=== PATIENT | female | born 1960 | race Caucasian/White ===

== ENCOUNTER → 2016-08-18 | Outpatient (CLI) | payer BC ==
[2016-08-18 14:27] VITALS: BP 168/98; PULSE 84; RESP 16; TEMP 98.3; BMI 51.0
--- NOTE | 2016-08-18 15:49 | P.HPBAR ---
Bariatric H&P - History & Physicial H&P Date: 08/18/16 History & Physicial: Visit/CC: Band Problems Patient initial contact: Initial weight: Initial weight in pounds: Height: 5 ft 6 in Initial BMI: Last weight: Current weight: 143.335 kg Current weight in pounds: 316.00 Current BMI: 51.0 [place] body weight (based on NIH guidelines): 58.967 kg Excess body weight loss: The patient is a 56 year-old F who presents for Bariatric Assessment. The patient presents today for lab band follow up. She's not been seen several years. Patient has complaints of left-sided abdominal pain. She has also had issues with GERD. Past Medical History Past Medical History: Cancer, Osteoarthritis (OA) Additional Past Medical History / Comment(s): Hard of hearing, degenerative disc disease and stenosis, left kidney cancer History of Any Multi-Drug Resistant Organisms: None Reported Past Surgical History: Bariatric Surgery, Section, Orthopedic Surgery Additional Past Surgical History / Comment(s): lap band 2003 (port moved from left to right later on), left knee total, right hip total replacement, left partial nephrectomy (cancer), D&C, ovarian cyst removal, right rotator cuff x2, (adhesion removal following the ) , Right carpal tunnel, left breast lumpectomy (benign) Past Anesthesia/Blood Transfusion Reactions: Postoperative Nausea & Vomiting ( PONV) Additional Past Anesthesia/Blood Transfusion Reaction / Comm: if not given an antiemetic will get Vertigo after anesthesia Past Psychological History: Depression Smoking Status: Former smoker Past Alcohol Use History: None Reported Additional Past Alcohol Use History / Comment(s): quit in 1982 Past Drug Use History: None Reported - Past Family History Mother Family Medical History: Congestive Heart Failure (CHF), Hypertension Father Family Medical History: Diabetes Mellitus Additional Family Medical History / Comment(s): at age 84, Surgical - Exam Vital Signs Temp Pulse Resp BP 98.3 F 84 16 168/98 08/18/16 14:22 08/18/16 14:22 08/18/16 14:22 08/18/16 14:22 - General well developed, no distress - Eyes PERRL - ENT normal pinna - Abdomen Mild left lower quadrant tenderness Abdomen: soft Bariatric Assessment & Plan Plan: Morbid obesity BMI 51. Left-sided abdominal pain. Patient will undergo computed tomography scan of the abdomen. GERD. Patient will undergo esophagram. Bariatric Checklist Checklist: Plan: Checklist: EGD: 1. Hiatal hernia: 2. H. Pylori: HgbA1c: Vitamin D: Smoking: Former smoker Primary care physician referral: Psychiatry clearance: Cardiology clearance: Sleep study: Diet journal: VTE risk score: VTE risk level: Rehab needs at discharge:
== END | disposition home or self-care (01) ==
LOC: BARWHC3 13:53
PROVIDERS: ATTEND Surgery
DX: Z48.815 Encounter for surgical aftercare following surgery on the digestive system (principal); Z98.84 Bariatric surgery status; R10.84 Generalized abdominal pain; K21.9 Gastro-esophageal reflux disease without esophagitis; Z68.43 Body mass index [BMI] 50.0-59.9, adult; Z87.891 Personal history of nicotine dependence
CPT/HCPCS: 99211

== ENCOUNTER → 2016-08-20 | Outpatient (CLI) | payer BC ==
--- NOTE | 2016-08-20 11:42 | FL ---
EXAMINATION TYPE: FL barium swallow DATE OF EXAM: 08/20/2016 11:36 AM LAP BANDING LIMITED ESOPHAGRAM: CLINICAL HISTORY: History of lap band placed 2003 presents with dysphagia per order. Right upper nicolasa drant pain for 8 months per patient. No recent change in lap band fill. TECHNIQUE: Limited esophagram is performed utilizing 2-3 oz of thin barium. A total of 18 seconds of fluoroscopic time was utilized during procedure. COMPARISON: Chest x-ray October 11, 2009. FINDINGS: Pre-procedure washing machine loader and puller image shows lap band in stable and satisfactory position in proximal stomach just below the gastroesophageal junction. Angle is maintained. The patient then drank oral contrast. There is good flow of contrast along the course of the esophagu s. There is good flow of contrast along the course of the lap band, there is no evidence of contrast extravasation to suggest leak. There is no lap band slippage appreciated. IMPRESSION: No evidence of lap band slippage or significant obstruction.
== END | disposition home or self-care (01) ==
LOC: RADFLWHC 10:49
PROVIDERS: ATTEND Surgery
DX: R13.10 Dysphagia, unspecified (principal)
CPT/HCPCS: 74220

== ENCOUNTER → 2016-08-27 | Outpatient (CLI) | payer BC ==
[2016-08-27 13:49] LABS: Blood Urea Nitrogen 16 mg/dL (7-17); Non-African American GFR(MDRD) >60 (>60 ml/min/1.73 sqM)
--- NOTE | 2016-08-27 15:18 | CT ---
EXAMINATION TYPE: CT abdomen pelvis w con DATE OF EXAM: 08/27/2016 2:42 PM REFERENCE: NONE HISTORY: R10.84 LLQ Abd Pain HISTORY: Left Lower Quadrant pain REFERENCE: NONE CT DLP: 3349.6 mGy Automated exposure control for dose reduction was used. TECHNIQUE: Helical acquisition through the abdomen and pelvis was obtained following the oral ingesti on of with Oral Contrast and following intravenous administration of 100 mL of Omnipaque 300. The ortiz a was reformatted in axial, coronal and sagittal projections. FINDINGS: Visualized portions of the lungs are clear. There is no pleural or pericardial fluid. The heart is not enlarged. There is a lap band in place. The liver, spleen and gallbladder are normal. Both adrenal glands are normal. Both kidneys demonstrate function. 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 The pancreas is unremarkable. There is no significant retroperitoneal, iliac or inguinal adenopathy. There is a left hip prosthesis in place causing moderate streak artifact through the pelvis. Uterus i s poorly visualized. There are prominent, bilateral ovarian cysts. The one on the left measures 5.3 c m and on the left measures 3.8 cm. There is no significant diverticular change and there is no radiologic evidence of diverticulitis. Th e appendix is not visualized. Small bowel loops are normal. There is no free fluid and no free air. There is degenerative disc disease in the lower lumbar spine as well as the lower dorsal spine. There is mild hypertrophic spondylosis in the lower dorsal spine. IMPRESSION: 1. PROMINENT, BILATERAL OVARIAN CYST. 2. SLIGHT MALROTATION OF THE KIDNEYS. 3. MILD DEGENERATIVE CHANGES IN THE SPINE. 4. STATUS POST LAP BAND.
== END | disposition home or self-care (01) ==
LOC: RADCTMAIN 12:27
PROVIDERS: ATTEND Surgery
DX: N83.202 Unspecified ovarian cyst, left side (principal); N83.201 Unspecified ovarian cyst, right side; Q63.2 Ectopic kidney; C64.9 Malignant neoplasm of unspecified kidney, except renal pelvis; Z98.84 Bariatric surgery status
CPT/HCPCS: 82565; 84520; 74177; 36415; Q9967

== ENCOUNTER → 2016-09-08 | Outpatient (CLI) | payer BC ==
--- NOTE | 2016-09-08 15:36 | P.HPBAR ---
Bariatric H&P - History & Physicial H&P Date: 09/08/16 History & Physicial: Visit/CC: band follow-up Patient initial contact: Initial weight: Initial weight in pounds: Height: Initial BMI: Last weight: Current weight: Current weight in pounds: Current BMI: [place] body weight (based on NIH guidelines): Excess body weight loss: The patient is a 56 year-old F who presents for Bariatric Assessment. Patient presents today for lab band follow up. She states she does not wish to fill. She has some concerns of some left-sided abdominal pain. Her recent CAT scan shows evidence of some arthritic changes of her spine. There is no evidence of any inflammatory changes around her LAP-BAND. Past Medical History Past Medical History: Cancer, Osteoarthritis (OA) Additional Past Medical History / Comment(s): Hard of hearing, degenerative disc disease and stenosis, left kidney cancer History of Any Multi-Drug Resistant Organisms: None Reported Past Surgical History: Bariatric Surgery, Section, Orthopedic Surgery Additional Past Surgical History / Comment(s): lap band 2003 (port moved from left to right later on), left knee total, right hip total replacement, left partial nephrectomy (cancer), D&C, ovarian cyst removal, right rotator cuff x2, (adhesion removal following the ) , Right carpal tunnel, left breast lumpectomy (benign) Past Anesthesia/Blood Transfusion Reactions: Postoperative Nausea & Vomiting ( PONV) Additional Past Anesthesia/Blood Transfusion Reaction / Comm: if not given an antiemetic will get Vertigo after anesthesia Past Psychological History: Depression Smoking Status: Former smoker Past Alcohol Use History: None Reported Additional Past Alcohol Use History / Comment(s): quit in 1982 Past Drug Use History: None Reported - Past Family History Mother Family Medical History: Congestive Heart Failure (CHF), Hypertension Father Family Medical History: Diabetes Mellitus Additional Family Medical History / Comment(s): at age 84, Surgical - Exam - General well developed, no distress - Eyes PERRL - ENT normal pinna - Neck no masses - Respiratory normal expansion - Cardiovascular Rhythm: regular - Abdomen Mild left-sided tenderness Abdomen: soft Bariatric Assessment & Plan Plan: The patient has chronic left-sided abdominal pain. He is unsure if this is coming from her LAP-BAND. I did offer to remove the fluid from her band. However the patient is afraid of some weight gain. The patient will follow-up in one month. She is attempting to obtain authorization the conversion for sleeve gastrectomy. Bariatric Checklist Checklist: Plan: Checklist: EGD: 1. Hiatal hernia: 2. H. Pylori: HgbA1c: Vitamin D: Smoking: Former smoker Primary care physician referral: Psychiatry clearance: Cardiology clearance: Sleep study: Diet journal: VTE risk score: VTE risk level: Rehab needs at discharge:
[2016-09-08 15:41] VITALS: BMI 47.7
== END | disposition home or self-care (01) ==
LOC: BARWHC3 13:44
PROVIDERS: ATTEND Surgery
DX: Z48.815 Encounter for surgical aftercare following surgery on the digestive system (principal); Z98.84 Bariatric surgery status; C64.9 Malignant neoplasm of unspecified kidney, except renal pelvis; M46.90 Unspecified inflammatory spondylopathy, site unspecified; R10.12 Left upper quadrant pain; R10.32 Left lower quadrant pain; Z87.891 Personal history of nicotine dependence
CPT/HCPCS: 99211

== ENCOUNTER → 2017-01-29 | Outpatient (CLI) | payer BC ==
--- NOTE | 2017-01-30 07:48 | USB ---
Reason for exam: clinical finding. History: Patient is postmenopausal and has history of other cancer at age 54. Benign excisional biopsy of the left breast, 1996. Indicated problem(s): other indicated problem in the left breast. Physical Findings: Nurse did not find any significant physical abnormalities on exam. US Breast LT Left breast ultrasound includes all four quadrants, the retroareolar region and axilla. Finding demonstrates a 3 x 3mm irregular, hypoechoic lesion too small to characterize at 7 o'clock and shadowing calcifications at 4 o'clock are stable. These results were verbally communicated with the patient and result sheet given to the patient on 01/29/17. ASSESSMENT: Probably benign, BI-RAD 3 RECOMMENDATION: Follow-up diagnostic mammogram of both breasts in 3 months. Ultrasound of the left breast in 3 months.
== END | disposition home or self-care (01) ==
LOC: RADMAMWWP 15:02
PROVIDERS: ATTEND Surgery
DX: N64.4 Mastodynia (principal)

== ENCOUNTER 2017-02-21 08:22 | Emergency (ER) | payer BC ==
[2017-02-21] MEDS ORDERED: ASPIRIN 81 MG CHEW PO STA (08:36)
[2017-02-21] MEDS ORDERED: NITROGLYCERIN OINT 1 INCH/GM PACKET TOPICAL STA (08:36)
--- NOTE | 2017-02-21 08:39 | ED ---
General Adult HPI - General Chief complaint: Chest Pain Stated complaint: CHEST PAIN, WILBUR Time Seen by Provider: 02/21/17 08:25 Source: patient, RN notes reviewed Mode of arrival: wheelchair Limitations: no limitations - History of Present Illness Initial comments: This is a 57-year-old female who is morbidly obese who presents emergency room complaining of pain between her shoulder but. Patient states the pain is worse with she moves in any direction. Patient states his been ongoing for days now. Patient states she was in the morning when she wakes up and has had a bed it starts hurt real bad this day goes on it has improved today however the pain did not seem to improve and she started having some anterior chest pain that comes and goes. Patient states she was also short of breath and sweating she decided to come to the emergency department. Patient denies any numbness or weakness. Patient denies any abdominal pain patient denies nausea or vomiting. Patient denies any palpitations. Patient denies any recent fever chills or cough. Patient denies any recent injury or trauma. Patient denies headache patient denies numbness weakness. Patient denies lightheadedness dizziness or near syncopal episode. - Related Data Home Medications Medication Instructions Recorded Confirmed Meloxicam [Mobic] 7.5 mg PO DAILY 05/11/14 09/09/16 clonazePAM [KlonoPIN] 1 mg PO HS 05/11/14 09/09/16 Previous Rx's Medication Instructions Recorded Cyclobenzaprine [Flexeril] 10 mg PO TID #20 tab 02/21/17 Hydrocodone/Acetaminophen [[place] 1 each PO Q4HR PRN #10 tab 02/21/17 5-325] Ibuprofen [Motrin] 600 mg PO Q6HR PRN #20 tab 02/21/17 Allergies Allergy/AdvReac Type Severity Reaction Status Date / Time codeine Allergy Severe AGITATED-"CLIMBS Verified 02/21/17 08:26 THE WALL" VERY ITCHY adhesive Allergy TAKES SKIN Verified 02/21/17 08:26 OFF-PAPER TAPE OK FOR A SHORT TIME morphine Allergy Itching Verified 02/21/17 08:26 CONTACT COLD MEDICATION Allergy HIVES Uncoded 02/21/17 08:26 Review of Systems ROS Statement: Those systems with pertinent positive or pertinent negative responses have been documented in the HPI. ROS Other: All systems not noted in ROS Statement are negative. Past Medical History Past Medical History: Cancer, Osteoarthritis (OA) Additional Past Medical History / Comment(s): Hard of hearing, degenerative disc disease and stenosis, left kidney cancer History of Any Multi-Drug Resistant Organisms: None Reported Past Surgical History: Bariatric Surgery, Section, Orthopedic Surgery Additional Past Surgical History / Comment(s): lap band 2003 (port moved from left to right later on), left knee total, right hip total replacement, left partial nephrectomy (cancer), D&C, ovarian cyst removal, right rotator cuff x2, (adhesion removal following the ) , Right carpal tunnel, left breast lumpectomy (benign) Past Anesthesia/Blood Transfusion Reactions: Postoperative Nausea & Vomiting ( PONV) Additional Past Anesthesia/Blood Transfusion Reaction / Comment(s): if not given an antiemetic will get Vertigo after anesthesia Past Psychological History: Depression Smoking Status: Former smoker Past Alcohol Use History: None Reported Past Drug Use History: None Reported - Past Family History Mother Family Medical History: Congestive Heart Failure (CHF), Hypertension Father Family Medical History: Diabetes Mellitus Additional Family Medical History / Comment(s): at age 84, General Exam - General Exam Comments Initial Comments: GENERAL: Patient is well-developed and well-nourished. Patient is nontoxic and well- hydrated and is in moderate distress. ENT: Neck is soft and supple. No significant lymphadenopathy is noted. Oropharynx is clear. Moist mucous membranes. Neck has full range of motion without eliciting any pain. EYES: The sclera were anicteric and conjunctiva were pink and moist. Extraocular movements were intact and pupils were equal round and reactive to light. Eyelids were unremarkable. PULMONARY: Unlabored respirations. Good breath sounds bilaterally. No audible rales rhonchi or wheezing was noted. CARDIOVASCULAR: There is a regular rate and rhythm without any murmurs gallops or rubs. ABDOMEN: Soft and nontender with normal bowel sounds. No palpable organomegaly was noted. There is no palpable pulsatile mass. SKIN: Skin is clear with no lesions or rashes and otherwise unremarkable. NEUROLOGIC: Patient is alert and oriented x3. Cranial nerves II through XII are grossly intact. Motor and sensory are also intact. Normal speech, volume and content. Symmetrical smile. MUSCULOSKELETAL: Normal extremities with adequate strength and full range of motion. No lower extremity swelling or edema. No calf tenderness. Patient has tenderness to the paraspinous muscles on palpation in her back and both sides of the spine. LYMPHATICS: No significant lymphadenopathy is noted PSYCHIATRIC: Normal psychiatric evaluation. Normal interpersonal interactions appears functionally intact in deals appropriately with others. No signs of depression. No signs of anxiety. Limitations: no limitations Course Vital Signs 02/21/17 02/21/17 02/21/17 08:23 09:26 10:00 Temperature 95 F L Pulse Rate 84 72 68 Respiratory 32 H 18 18 Rate Blood Pressure 170/89 149/86 144/84 O2 Sat by Pulse 96 97 97 Oximetry Medical Decision Making - Medical Decision Making EKG shows normal sinus rhythm at 92 bpm NV interval is on a 40 QRS 76 QT interval 380 QTC is 469 per patient's EKG shows no ST segment elevation or depression or T-wave abdomen is noted. Chest x-ray shows no acute abnormality Patient was resting in the room comfortably she stated her pain was much better she had no more chest pain while in the emergency department. I told the patient that she needed to stay in the hospital because of the chest pain she stated she could increase her son just came home the weekend. I continued to explain to her why I want her to stay in the risks of leaving and she still insisted on leaving. Patient states she would sign out AMA. - Lab Data Result diagrams: 02/21/17 08:39 02/21/17 08:39 Lab Results 02/21/17 02/21/17 02/21/17 Range/Units 08:39 08:39 08:39 WBC 9.0 (3.8-10.6) k/uL RBC 5.10 (3.80-5.40) m/uL Hgb 14.8 (11.4-16.0) gm/dL Hct 47.4 H (34.0-46.0) % MCV 92.9 (80.0-100.0) fL MCH 29.1 (25.0-35.0) pg MCHC 31.3 (31.0-37.0) g/dL RDW 14.1 (11.5-15.5) % Plt Count 265 (150-450) k/uL Neutrophils % 55 % Lymphocytes % 37 % Monocytes % 3 % Eosinophils % 3 % Basophils % 1 % Neutrophils # 5.0 (1.3-7.7) k/uL Lymphocytes # 3.3 (1.0-4.8) k/uL Monocytes # 0.3 (0-1.0) k/uL Eosinophils # 0.2 (0-0.7) k/uL Basophils # 0.1 (0-0.2) k/uL PT (9.0-12.0) sec INR (<1.2) APTT (22.0-30.0) sec Sodium 143 (137-145) mmol/L Potassium 4.4 (3.5-5.1) mmol/L Chloride 108 H (98-107) mmol/L Carbon Dioxide 25 (22-30) mmol/L Anion Gap 10 mmol/L BUN 13 (7-17) mg/dL Creatinine 0.78 (0.52-1.04) mg/dL Est GFR (MDRD) Af Amer >60 (>60 ml/min/1.73 sqM) Est GFR (MDRD) Non-Af >60 (>60 ml/min/1.73 sqM) Glucose 106 H (74-99) mg/dL Calcium 9.5 (8.4-10.2) mg/dL Magnesium 1.8 (1.6-2.3) mg/dL Total Bilirubin 0.6 (0.2-1.3) mg/dL AST 22 (14-36) U/L ALT 36 (9-52) U/L Alkaline Phosphatase 85 (38-126) U/L Total Creatine Kinase 126 (30-135) U/L CK-MB (CK-2) 0.8 (0.0-2.4) ng/mL CK-MB (CK-2) Rel Index 0.6 Troponin I <0.012 (0.000-0.034) ng/mL Total Protein 6.8 (6.3-8.2) g/dL Albumin 4.2 (3.5-5.0) g/dL 02/21/17 Range/Units 08:39 WBC (3.8-10.6) k/uL RBC (3.80-5.40) m/uL Hgb (11.4-16.0) gm/dL Hct (34.0-46.0) % MCV (80.0-100.0) fL MCH (25.0-35.0) pg MCHC (31.0-37.0) g/dL RDW (11.5-15.5) % Plt Count (150-450) k/uL Neutrophils % % Lymphocytes % % Monocytes % % Eosinophils % % Basophils % % Neutrophils # (1.3-7.7) k/uL Lymphocytes # (1.0-4.8) k/uL Monocytes # (0-1.0) k/uL Eosinophils # (0-0.7) k/uL Basophils # (0-0.2) k/uL PT 10.6 (9.0-12.0) sec INR 1.0 (<1.2) APTT 24.8 (22.0-30.0) sec Sodium (137-145) mmol/L Potassium (3.5-5.1) mmol/L Chloride (98-107) mmol/L Carbon Dioxide (22-30) mmol/L Anion Gap mmol/L BUN (7-17) mg/dL Creatinine (0.52-1.04) mg/dL Est GFR (MDRD) Af Amer (>60 ml/min/1.73 sqM) Est GFR (MDRD) Non-Af (>60 ml/min/1.73 sqM) Glucose (74-99) mg/dL Calcium (8.4-10.2) mg/dL Magnesium (1.6-2.3) mg/dL Total Bilirubin (0.2-1.3) mg/dL AST (14-36) U/L ALT (9-52) U/L Alkaline Phosphatase (38-126) U/L Total Creatine Kinase (30-135) U/L CK-MB (CK-2) (0.0-2.4) ng/mL CK-MB (CK-2) Rel Index Troponin I (0.000-0.034) ng/mL Total Protein (6.3-8.2) g/dL Albumin (3.5-5.0) g/dL Disposition Clinical Impression: Chest pain, Thoracic back pain Disposition: Left Against Medical Advice Instructions: Chest Pain (ED) Prescriptions: Cyclobenzaprine [Flexeril] 10 mg PO TID #20 tab Hydrocodone/Acetaminophen [[place] 5-325] 1 each PO Q4HR PRN #10 tab PRN Reason: Pain Ibuprofen [Motrin] 600 mg PO Q6HR PRN #20 tab PRN Reason: For pain Referrals: Darrick Schwab DO [Primary Care Provider] - 1-2 days Time of Disposition: 10:22
[2017-02-21] MEDS ORDERED: DIAZEPAM 5 MG/ML 2 ML SYRINGE IVP STA (08:42)
[2017-02-21] MEDS ORDERED: HYDROmorphone 1 MG/ML 1 ML SYRINGE IVP STA (08:42)
[2017-02-21 08:54] LABS: Basophils # (A) 0.1 k/uL (0-0.2); Basophils % (A) 1 %; CHCM 32.5; Eosinophils # (A) 0.2 k/uL (0-0.7); Eosinophils % (A) 3 %; HCT 47.4 % (34.0-46.0); HDW 2.16; HGB 14.8 gm/dL (11.4-16.0); Luc # (Auto) 0.14; Luc % (Auto) 2; Lymphocytes # (A) 3.3 k/uL (1.0-4.8); Lymphocytes % (A) 37 %; MCH 29.1 pg (25.0-35.0); MCHC 31.3 g/dL (31.0-37.0); MCV 92.9 fL (80.0-100.0); Mean Platelet Volume 7.4; Monocytes # (A) 0.3 k/uL (0-1.0); Monocytes % (A) 3 %; Neutrophils % (A) 55 %; RDW 14.1 % (11.5-15.5); WBC (Perox) 8.96
[2017-02-21 09:07] LABS: ALT 36 U/L (9-52); AST 22 U/L (14-36); Alkaline Phosphatase 85 U/L (38-126); Anion Gap 10 mmol/L; Blood Urea Nitrogen 13 mg/dL (7-17); Calcium 9.5 mg/dL (8.4-10.2); Carbon Dioxide 25 mmol/L (22-30); Chloride 108 mmol/L (98-107); Glucose 106 mg/dL (74-99); Magnesium 1.8 mg/dL (1.6-2.3); Non-African American GFR(MDRD) >60 (>60 ml/min/1.73 sqM); Potassium 4.4 mmol/L (3.5-5.1); Sodium 143 mmol/L (137-145); Total Bilirubin 0.6 mg/dL (0.2-1.3); Total Protein 6.8 g/dL (6.3-8.2)
[2017-02-21 09:08] LABS: Partial Thromboplastin Time 24.8 sec (22.0-30.0); Prothrombin Time 10.6 sec (9.0-12.0)
[2017-02-21 09:10] LABS: Creatine Kinase 126 U/L (30-135)
[2017-02-21 09:23] LABS: Creatine Kinase MB 0.8 ng/mL (0.0-2.4); Troponin I <0.012 ng/mL (0.000-0.034)
--- NOTE | 2017-02-21 09:40 | XR ---
EXAMINATION TYPE: XR chest 2V DATE OF EXAM: 02/21/2017 COMPARISON: NONE HISTORY: Chest pain TECHNIQUE: Frontal and lateral views of the chest are obtained. FINDINGS: Heart and mediastinum are normal. Lungs are clear. Diaphragm is normal. There are chest le ads. Bony thorax is intact. IMPRESSION: Normal chest
[2017-02-21 10:05] VITALS: BP 144/84
[2017-02-21 10:32] VITALS: PULSE 80; RESP 20; TEMP 98
== END 2017-02-21 10:35 | disposition left against medical advice (07) ==
LOC: EC 08:22
DX: R07.89 Other chest pain (principal); M54.6 Pain in thoracic spine; M19.90 Unspecified osteoarthritis, unspecified site; Z85.528 Personal history of other malignant neoplasm of kidney; Z87.891 Personal history of nicotine dependence; Z79.1 Long term (current) use of non-steroidal anti-inflammatories (NSAID); Z79.899 Other long term (current) drug therapy; Z88.5 Allergy status to narcotic agent; Z88.8 Allergy status to other drugs, medicaments and biological substances; Z91.048 Other nonmedicinal substance allergy status
CPT/HCPCS: 36415; 93005; 80053; 82550; 82553; 83735; 84484; 85025; 85610; 85730; 71020; 99285; 96374; 96375; J3360; J1170

== ENCOUNTER → 2017-03-03 | Outpatient (CLI) | payer BC ==
--- NOTE | 2017-03-03 16:08 | XR ---
EXAMINATION TYPE: XR thoracic spine complete DATE OF EXAM: 03/03/2017 CLINICAL HISTORY: Fall with mid back pain. TECHNIQUE: Frontal, lateral, and swimmer's view of thoracic spine are obtained. COMPARISON: None. FINDINGS: Thoracic spine show satisfactory alignment without evidence of acute dislocation. Very mild anterior wedging is seen of likely the T7 vertebral body. In the setting of fall and acute back pain this could represent small compression deformity without retropulsion. Moderate degenerative changes of the thoracic spine are noted as facet arthropathy, intervertebral disc space narrowing, anterior osteophytes and endplate sclerosis. No displaced rib fractures are apparent. IMPRESSION: Mild anterior wedge compression deformity of the T7 vertebral body of indeterminate age. In the setting of fall and acute back pain this could represent acute deformity without retropulsion. MR could be performed to evaluate for bone marrow edema.
== END | disposition home or self-care (01) ==
LOC: RADXRMAIN 15:41
PROVIDERS: ATTEND Family Medicine
DX: G95.20 Unspecified cord compression (principal); M43.9 Deforming dorsopathy, unspecified
CPT/HCPCS: 72072

== ENCOUNTER → 2017-08-06 | Outpatient (CLI) | payer BC ==
--- NOTE | 2017-08-07 08:51 | USB ---
Reason for exam: clinical finding. History: Patient is postmenopausal and has history of other cancer at age 54. Benign excisional biopsy of the left breast, 1996. Physical Findings: Nurse Summary: pain x 1 year, states had abscess and can still feel it (nurse kp). US Breast LT Right breast ultrasound includes all four quadrants, the retroareolar region and axilla. Finding demonstrates a 0.6 x 0.3 x 0.6cm calcified lesion at 3 o'clock and a 0.6cm node at the axilla. These results were verbally communicated with the patient and result sheet given to the patient on 08/06/17. ASSESSMENT: Benign, BI-RAD 2 RECOMMENDATION: Routine screening mammogram of both breasts. (Patient is due now for screening mammogram). Manage on a clinical basis with regard to left axillary pain.
== END | disposition home or self-care (01) ==
LOC: RADUSWWP 15:04
PROVIDERS: ATTEND Obstetrics & Gynecology
DX: R92.8 Other abnormal and inconclusive findings on diagnostic imaging of breast (principal)

== ENCOUNTER → 2018-05-03 | Outpatient (CLI) | payer BC ==
[2018-05-03 15:38] VITALS: BP 162/102; PULSE 87; TEMP 98.2; BMI 47.1
--- NOTE | 2018-05-03 16:17 | P.HPBAR ---
Bariatric H&P - History & Physicial H&P Date: 05/03/18 History & Physicial: Visit/CC: lap band follow up Patient initial contact: Initial weight: 133.498 kg Initial weight in pounds: 294.31 Height: 5 ft 6 in Initial BMI: 47.5 Last weight: Current weight: 132.449 kg Current weight in pounds: 292.00 Current BMI: 47.1 [place] body weight (based on NIH guidelines): 58.967 kg Excess body weight loss: 1.4% The patient is a 58 year-old F who presents for Bariatric Assessment. Patient presents today for lab band adjustment. She's had issues with chronic dysphagia and GERD. She wants to switch to a sleeve. She's had complaints of some epigastric pain related to her LAP-BAND port. Past Medical History Past Medical History: Cancer, Osteoarthritis (OA) Additional Past Medical History / Comment(s): Hard of hearing, degenerative disc disease and stenosis, left kidney cancer History of Any Multi-Drug Resistant Organisms: None Reported Past Surgical History: Bariatric Surgery, Section, Orthopedic Surgery Additional Past Surgical History / Comment(s): lap band 2003 (port moved from left to right later on), left knee total, right hip total replacement, left partial nephrectomy (cancer), D&C, ovarian cyst removal, right rotator cuff x2, (adhesion removal following the ) , Right carpal tunnel, left breast lumpectomy (benign) Past Anesthesia/Blood Transfusion Reactions: Postoperative Nausea & Vomiting ( PONV) Additional Past Anesthesia/Blood Transfusion Reaction / Comm: if not given an antiemetic will get Vertigo after anesthesia Past Psychological History: Depression Smoking Status: Former smoker Past Alcohol Use History: None Reported Additional Past Alcohol Use History / Comment(s): quit in 1982 Past Drug Use History: None Reported - Past Family History Mother Family Medical History: Congestive Heart Failure (CHF), Hypertension Father Family Medical History: Diabetes Mellitus Additional Family Medical History / Comment(s): at age 84, Surgical - Exam Vital Signs Temp Pulse BP 98.2 F 87 162/102 05/03/18 15:33 05/03/18 15:33 05/03/18 15:33 - General well developed, well nourished, no distress - Eyes PERRL - ENT normal pinna - Neck no masses - Respiratory normal expansion - Cardiovascular Rhythm: regular - Abdomen Abdomen: soft, non tender Bariatric Assessment & Plan Plan: Patient LAP-BAND was adjusted. She had 1.4 mL at removed from her band. She currently is 0 mL in her band. She's had issues chronic dysphagia and epigastric pain. We will attempt authorize were for conversion to sleeve gastrectomy. Bariatric Checklist Checklist: Plan: Checklist: EGD: 1. Hiatal hernia: 2. H. Pylori: HgbA1c: Vitamin D: Smoking: Former smoker Primary care physician referral: Psychiatry clearance: Cardiology clearance: Sleep study: Diet journal: VTE risk score: VTE risk level: Rehab needs at discharge:
== END ==
LOC: BARWHC3 13:58
PROVIDERS: ATTEND Surgery
DX: Z48.815 Encounter for surgical aftercare following surgery on the digestive system (principal); R10.13 Epigastric pain; R13.10 Dysphagia, unspecified; Z98.84 Bariatric surgery status; Z87.891 Personal history of nicotine dependence
CPT/HCPCS: 99212

== ENCOUNTER → 2019-09-16 | Outpatient (CLI) | payer BC ==
[2019-09-16 11:14] LABS: Basophils % (A) 1 %; Eosinophils # (A) 0.2 k/uL (0-0.7); Eosinophils % (A) 2 %; HCT 46.5 % (34.0-46.0); HGB 14.6 gm/dL (11.4-16.0); Lymphocytes # (A) 2.1 k/uL (1.0-4.8); Lymphocytes % (A) 29 %; MCH 28.9 pg (25.0-35.0); MCHC 31.5 g/dL (31.0-37.0); MCV 91.7 fL (80.0-100.0); Mean Platelet Volume 7.4; Monocytes # (A) 0.4 k/uL (0-1.0); Monocytes % (A) 5 %; Neutrophils # (A) 4.5 k/uL (1.3-7.7); Neutrophils % (A) 62 %; Platelet Count 235 k/uL (150-450); RBC 5.06 m/uL (3.80-5.40); RDW 13.6 % (11.5-15.5); WBC 7.3 k/uL (3.8-10.6)
[2019-09-16 16:22] LABS: African American GFR (CKD) 92.2 (60.0-200.0); Albumin 4.2 g/dL (3.80-4.90); Albumin/Globulin Ratio 2.1 (1.60-3.17); Anion Gap 6.7 mmol/L (4.00-12.00); BUN/Creat Ratio 18.75 Ratio (12.00-20.00); Calcium 9.5 mg/dL (8.7-10.3); Carbon Dioxide 30.3 mmol/L (21.6-31.8); Chol/HDL Ratio 3.15; LDL Cholesterol,Calculated 112.4 mg/dL (0.0-131.0); Non-African American GFR(CKD) 79.6 (60.0-200.0); Potassium 4.7 mmol/L (3.5-5.5); Total Bilirubin 0.7 mg/dL (0.2-1.2); Total Protein 6.2 g/dL (6.2-8.2); VLDL Calculation 18.6 mg/dL (5.00-40.00)
[2019-09-16 16:32] LABS: T4, Free (Free Thyroxine) 1.2 ng/dL (0.80-1.80)
[2019-09-16 18:15] LABS: Hemoglobin A1C 6.5 % (4.0-6.0)
== END | disposition home or self-care (01) ==
LOC: LABWHC1 10:05
PROVIDERS: ATTEND Family Medicine
DX: I10 Essential (primary) hypertension (principal); G89.29 Other chronic pain; R53.82 Chronic fatigue, unspecified
CPT/HCPCS: 36415; 80053; 80061; 83036; 84439; 84443; 85025

== ENCOUNTER → 2020-01-23 | Outpatient (CLI) | payer BC ==
[2020-01-23 14:38] VITALS: BP 148/82; PULSE 67; RESP 16; TEMP 98.3; BMI 49.7
--- NOTE | 2020-01-23 15:35 | FL ---
Barium swallow HISTORY: Dysphasia 24 seconds fluoroscopy time supplied, 3 images obtained. Patient was given 25 cc Isovue 370 orally. Attention directed to the gastroesophageal junction. There is no obstruction to flow or evident leak. Lap band shows a normal orientation. IMPRESSION: No evident complications secondary to lap band.
--- NOTE | 2020-01-30 13:31 | P.HPBAR ---
Bariatric H&P - History & Physicial H&P Date: 01/30/20 History & Physicial: Visit/CC: Band F/U Patient initial contact: Initial weight: 133.498 kg Initial weight in pounds: 294.31 Height: 5 ft 6 in Initial BMI: 47.5 Last weight: Current weight: 139.877 kg Current weight in pounds: 308.38 Current BMI: 49.7 [place] body weight (based on NIH guidelines): 58.967 kg Excess body weight loss: The patient is a 60 year-old F who presents for Bariatric Assessment. Patient presents today for lab band follow. She states she's had problems with GERD. She is considering converting to a sleeve gastrectomy. Patient states that she has intermittent pain in the epigastric area and GERD. Past Medical History Past Medical History: Cancer, Osteoarthritis (OA) Additional Past Medical History / Comment(s): Hard of hearing, degenerative disc disease and stenosis, left kidney cancer History of Any Multi-Drug Resistant Organisms: None Reported Past Surgical History: Bariatric Surgery, Section, Orthopedic Surgery Additional Past Surgical History / Comment(s): lap band 2003 (port moved from left to right later on), left knee total, right hip total replacement, left partial nephrectomy (cancer), D&C, ovarian cyst removal, right rotator cuff x2, (adhesion removal following the ) , Right carpal tunnel, left breast lumpectomy (benign) Past Anesthesia/Blood Transfusion Reactions: Postoperative Nausea & Vomiting (PONV) Additional Past Anesthesia/Blood Transfusion Reaction / Comm: if not given an antiemetic will get Vertigo after anesthesia Past Psychological History: Depression Smoking Status: Unknown if ever smoked Past Alcohol Use History: None Reported Additional Past Alcohol Use History / Comment(s): quit in 1982 Past Drug Use History: None Reported - Past Family History Mother Family Medical History: Congestive Heart Failure (CHF), Hypertension Father Family Medical History: Diabetes Mellitus Additional Family Medical History / Comment(s): at age 84, Surgical - Exam Vital Signs Temp Pulse Resp BP 98.3 F 67 16 148/82 01/23/20 14:34 01/23/20 14:34 01/23/20 14:34 01/23/20 14:34 - General well developed, well nourished, no distress - Eyes PERRL - ENT normal pinna - Neck no masses - Respiratory normal expansion - Cardiovascular Rhythm: regular - Abdomen Abdomen: soft, non tender Bariatric Assessment & Plan Plan: Patient was scheduled for esophagram. Esophagram was performed and is normal. Patient scheduled for EGD. She'll follow-up after this has been performed. Bariatric Checklist Checklist: Plan: Checklist: EGD: 1. Hiatal hernia: 2. H. Pylori: HgbA1c: Vitamin D: Smoking: Former smoker Primary care physician referral: Psychiatry clearance: Cardiology clearance: Sleep study: Diet journal: VTE risk score: VTE risk level: Rehab needs at discharge:
== END | disposition home or self-care (01) ==
LOC: BARWHC3 13:58
PROVIDERS: ATTEND Surgery
DX: Z46.51 Encounter for fitting and adjustment of gastric lap band (principal); K21.9 Gastro-esophageal reflux disease without esophagitis; R13.10 Dysphagia, unspecified; Z98.84 Bariatric surgery status; Z87.891 Personal history of nicotine dependence
CPT/HCPCS: 74220; 99211; Q9967

== ENCOUNTER → 2020-07-02 | Outpatient (CLI) | payer BC ==
--- NOTE | 2020-07-03 14:17 | MM ---
Reason for exam: screening (asymptomatic). Last mammogram was performed 4 years and 2 months ago. History: Patient is postmenopausal and has history of other cancer at age 54. Benign excisional biopsy of the left breast, 1996. Physical Findings: A clinical breast exam by your physician is recommended on an annual basis and results should be correlated with mammographic findings. MG Screening Mammo w CAD Bilateral CC and MLO view(s) were taken. Prior study comparison: May 02, 2016, bilateral MG screening mammo w CAD. March 07, 2015, bilateral MG diagnostic mammo w CAD JUAN. There are scattered fibroglandular densities. Finding: There are typically benign course calcifications in the lower outer quadrant, middle position of the left breast. No significant changes in finding since May 02, 2016 and March 07, 2015. ASSESSMENT: Benign, BI-RAD 2 RECOMMENDATION: Routine screening mammogram of both breasts in 1 year.
== END | disposition home or self-care (01) ==
LOC: RADMAMWWP 15:42
PROVIDERS: ATTEND Obstetrics & Gynecology
DX: Z12.31 Encounter for screening mammogram for malignant neoplasm of breast (principal)
CPT/HCPCS: 77067

== ENCOUNTER → 2020-11-28 | Outpatient (CLI) | payer BC ==
[2020-11-28 13:29] VITALS: BP 140/110; PULSE 86; RESP 18; TEMP 98.1; BMI 50.5
--- NOTE | 2020-11-28 13:56 | P.HPBAR ---
Bariatric H&P - History & Physicial H&P Date: 11/28/20 History & Physicial: Visit/CC: new patient Patient initial contact: Initial weight: 133.498 kg Initial weight in pounds: 294.31 Height: 5 ft 6 in Initial BMI: 47.5 Last weight: Current weight: 141.974 kg Current weight in pounds: 313.00 Current BMI: 50.5 [place] body weight (based on NIH guidelines): 58.967 kg Excess body weight loss: The patient is a 60 year-old F who presents for Bariatric Assessment. DATE OF SERVICE: 11/28/2020 REASON FOR CONSULTATION: Initial bariatric evaluation. HISTORY OF PRESENT ILLNESS: Racheal Colon is a 60-year-old female who comes with lifelong morbid obesity. She had her adjustable gastric band placed in 2003. She reports dysphagia with her band. She reports abdominal pain. She wants her band out. Her BMI is over 50. She has history of open sores along her pannus. She reports chronic abdominal pain. She is looking for a second opinion for her band removal. She reports constant undoing with fluid removal from her band which caused her weight gain. She was down to 225 pounds. Her highest weight is at present. She reports restriction and food getting stuck when she eats. She reports abdominal cramps and food getting stuck at the esophagus. Her mother had stomach ulcers and her son had trouble with his esophagus and stricture of the throat. She reports chronic lower back pain. She has mild hard of hearing. She takes Mobic routinely. She reports pain with her hips and had h ip replacement with knee replacement. She had kidney cancer and now has constant diarrhea since 2013. She had robotic kidney surgery at [facility]. She reports an aneurysm. She has not seen a heart doctor in a while. Her blood pressure is 142/110. She reports pain along the left upper quadrant pain. She had her last colonoscopy from 2000. She reports constant gas bloat. She still has her gallbladder. She has history of colon polyps at each visit. At height of 5 feet 6 inches, her ideal body weight is 154 pounds. She comes in 312 pounds. Her body mass index is 50.5 She is 158 pounds overweight. She has gained 87 pounds from her lowest with her band. PAST MEDICAL HISTORY: 1. Morbid obesity due to excess calories 2. Degenerative disc disease of the back 3. Left kidney cancer 4. Osteoarthritis of the knee, bilateral 5. Postoperative nausea and vomiting 6. Depressive disorder 7. Osteoarthritis of the hips 8. Aneurysm 9. Hypertensive heart disease. 10. Colon polyps PAST SURGICAL HISTORY: 1. Lap band surgery, 2003 2. Left total knee replacement 3. Right total knee replacement 4. Left partial nephrectomy, robotic 5. Dilatation and curettage 6. Ovarian cyst removal 7. Right rotator cuff repair x 2 8. section 9. Right carpal tunnel syndrome 10. Left breast lumpectomy 11. Hip replacement 12. Colonoscopy HOME MEDICATIONS: Home Medications Medication Instructions Recorded Confirmed clonazePAM [KlonoPIN] 0.5 mg PO HS 05/11/14 01/16/21 Ergocalciferol [Vitamin D2 (1250 50,000 unit PO TH 12/06/20 01/16/21 Mcg = 75154 Iu)] Previous Rx's Medication Instructions Recorded Omeprazole [PriLOSEC] 40 mg PO DAILY #14 cap 12/31/20 ALLERGIES: Allergies Allergy/AdvReac Type Severity Reaction Status Date / Time codeine Allergy Severe AGITATED-"CLIMBS Verified 01/16/21 15:29 THE WALL" VERY ITCHY adhesive Allergy TAKES SKIN Verified 01/16/21 15:29 OFF-PAPER TAPE OK FOR A SHORT TIME morphine Allergy Itching Verified 01/16/21 15:29 CONTACT COLD MEDICATION Allergy HIVES Uncoded 01/16/21 15:29 SOCIAL HISTORY: Past tobacco use. FAMILY HISTORY: No family history of ulcerative colitis disease or Crohn's disease. Family history of morbid obesity. No lupus in the family. No reports of stomach or esophageal cancer. REVIEW OF ORGAN SYSTEMS: CONSTITUTIONAL: At height of 5 feet 6 inches, her ideal body weight is 154 pounds. She comes in 312 pounds. Her body mass index is 50.5 She is 158 pounds overweight. She has gained 87 pounds from her lowest with her band. HEENT: Denies any active troubles with hearing. Has hard of hearing. ENDOCRINE: No hypothyroidism. No diabetes. CARDIOVASCULAR: Denies reports of palpitations or heart attacks or chest pain. Has hypertensive heart disease. RESPIRATORY: Has daytime somnolence. No current pneumonia. GASTROINTESTINAL: Denies any bright red blood per rectum. No diarrhea. No constipation. Has gastroesophageal reflux disease. Last colonoscopy from 2000. GENITOURINARY: No recent blood in urine. Has kidney cancer. MUSCULOSKELETAL: Has lower back pain and joint pain. Has osteoarthritis of the knees. NEURO: No headaches. No seizure disorders. PSYCH: Denies depression. No suicidal ideation. RHEUMATOLOGIC: No lupus. No rheumatoid arthritis. HEMATOLOGIC: Denies any abnormal bleeding or bruising. SKIN: No rash. No skin cancer. PHYSICAL EXAM: VITAL SIGNS: Height 5 foot 6 inches, weight 312 pounds. BMI 50.5 Vital Signs Temp 98.1 F 11/28/20 13:23 Pulse 86 11/28/20 13:23 Resp 18 11/28/20 13:23 BP 140/110 11/28/20 13:23 Pulse Ox GENERAL: Well-developed in no acute distress. HEENT: No scleral icterus. Extraocular movements grossly intact. Hears conversational speech. No nasal drainage. NECK: Supple without lymphadenopathy. CHEST: Nonlabored respirations with equal bilateral excursions. CARDIOVASCULAR: Regular rate and regular rhythm. Distal 2+ pulses. ABDOMEN: Obese, soft, nontender, nondistended. MUSCULOSKELETAL: No clubbing, cyanosis. NEURO: No focal or lateralizing signs. Cranial nerves 2 through 12 grossly within normal limits. PSYCH: Appropriate affect. Alert and oriented to person, place and time. SKIN: Good skin turgor. Well perfused. STUDIES: CT of abdomen/pelvis from 2017 reviewed showed diverticulosis, gallbladder present. This is my independent interpretation. ASSESSMENT: 1. Morbid obesity due to excess calories 2. Degenerative disc disease of the back 3. Left kidney cancer 4. Osteoarthritis of the knee, bilateral 5. Postoperative nausea and vomiting 6. Depressive disorder 7. Osteoarthritis of the hips 8. Aneurysm 9. Hypertensive heart disease. 10. Colon polyps 11. Dysphagia 12. Complications from adjustable gastric band. 13. Diverticulosis PLAN: 1. She is looking into removal of her adjustable gastric band due to complications from the band and dysphagia. 2. Recommend esophagram 3. Recommend a bariatric metabolic panel to evaluate for micro- including macronutrient deficiencies. 4. Dietary surveillance and counseling was reviewed. Increased protein intake over 65 grams daily advised. 5. Will need cardiac risk assessment. 6. Recommend medical risk assessment. 7. Psych assessment per insurance guidelines. 8. Recommend upper endoscopy for dysphagia. 9. Recommend 12-lead EKG. 10. Recommend colonoscopy for diarrhea and she is due for colonoscopy 11. Recommend US gallbladder and HIDA scan for her current symptoms for gallbladder disorder. Thank you for this consultation. Past Medical History Past Medical History: Cancer, Osteoarthritis (OA) Additional Past Medical History / Comment(s): Hard of hearing, degenerative disc disease and stenosis, left kidney cancer History of Any Multi-Drug Resistant Organisms: None Reported Past Surgical History: Bariatric Surgery, Section, Orthopedic Surgery Additional Past Surgical History / Comment(s): lap band 2003 (port moved from left to right later on), left knee total, right hip total replacement, left partial nephrectomy (cancer), D&C, ovarian cyst removal, right rotator cuff x2, (adhesion removal following the ) , Right carpal tunnel, left breast lumpectomy (benign) Past Anesthesia/Blood Transfusion Reactions: Postoperative Nausea & Vomiting (PONV) Additional Past Anesthesia/Blood Transfusion Reaction / Comm: if not given an antiemetic will get Vertigo after anesthesia Past Psychological History: Depression Smoking Status: Unknown if ever smoked Past Alcohol Use History: None Reported Additional Past Alcohol Use History / Comment(s): quit in 1982 Past Drug Use History: None Reported - Past Family History Mother Family Medical History: Congestive Heart Failure (CHF), Hypertension Father Family Medical History: Diabetes Mellitus Additional Family Medical History / Comment(s): at age 84, Surgical - Exam Vital Signs Temp Pulse Resp BP 98.1 F 86 18 140/110 11/28/20 13:23 11/28/20 13:23 11/28/20 13:23 11/28/20 13:23 Results - Labs 11/28/20 14:58 11/28/20 14:58 Bariatric Checklist Checklist: Plan: Checklist: EGD: 1. Hiatal hernia: 2. H. Pylori: HgbA1c: Vitamin D: Smoking: Former smoker Primary care physician referral: Dr. Darrick Luis Psychiatry clearance: Cardiology clearance: Sleep study: Diet journal: VTE risk score: VTE risk level: Rehab needs at discharge:
[2020-11-28 16:02] LABS: HCT 43.6 % (34.0-46.0); HGB 14.3 gm/dL (11.4-16.0); MCHC 32.9 g/dL (31.0-37.0); MCV 91.4 fL (80.0-100.0); Mean Platelet Volume 7.1; Platelet Count 248 k/uL (150-450); RBC 4.77 m/uL (3.80-5.40); RDW 13.5 % (11.5-15.5); WBC 9.2 k/uL (3.8-10.6)
[2020-11-29 01:02] LABS: Hemoglobin A1C 6.5 % (4.0-6.0)
[2020-11-29 05:13] LABS: INR 0.98 (0.90-1.11); Partial Thromboplastin Time 27.8 sec (23.5-31.0); Prothrombin Time 10.7 sec (9.9-11.9)
[2020-11-29 14:48] LABS: % Iron Saturation 19.94 (12.00-45.00); African American GFR (CKD) 91.6 (60.0-200.0); Albumin 4.4 g/dL (3.80-4.90); Anion Gap 8.6 mmol/L (4.00-12.00); BUN/Creat Ratio 22.5 Ratio (12.00-20.00); Calcium 9.4 mg/dL (8.7-10.3); Carbon Dioxide 26.4 mmol/L (21.6-31.8); Chol/HDL Ratio 3.63; Globulin 2.2 g/dL (1.6-3.3); LDL Cholesterol,Calculated 125.2 mg/dL (0.0-131.0); Magnesium 1.9 mg/dL (1.5-2.4); Phosphorus 3.2 mg/dL (2.4-5.1); Potassium 4.4 mmol/L (3.5-5.5); Total Bilirubin 0.3 mg/dL (0.3-1.2); Total Protein 6.6 g/dL (6.2-8.2); VLDL Calculation 21.8 mg/dL (5.00-40.00)
[2020-11-29 14:57] LABS: Ferritin 63.8 ng/mL (10.0-291.0)
[2020-11-29 14:58] LABS: Folate, Serum 7.6 ng/mL
[2020-11-29 16:16] LABS: Zinc, Serum 57 ug/dL (60-130)
[2020-11-30 07:03] LABS: Vit B1(Thiamine) 55 ug/L (38-122)
[2020-11-30 07:20] LABS: Vitamin A 26 ug/dL (38-106)
[2020-11-30 09:05] LABS: Anabasine Urine <2.0 ng/mL (<2.0)
[2020-12-02 16:59] LABS: Selenium 101 mcg/L (63-160)
== END ==
LOC: BARWHC3 12:56
PROVIDERS: ATTEND Surgery Plastic and Reconstructive Surgery
DX: E66.01 Morbid (severe) obesity due to excess calories (principal); M51.9 Unspecified thoracic, thoracolumbar and lumbosacral intervertebral disc disorder; M17.0 Bilateral primary osteoarthritis of knee; C64.2 Malignant neoplasm of left kidney, except renal pelvis; R11.2 Nausea with vomiting, unspecified; F32.9 Major depressive disorder, single episode, unspecified; M16.0 Bilateral primary osteoarthritis of hip; I11.9 Hypertensive heart disease without heart failure; I72.9 Aneurysm of unspecified site; K63.5 Polyp of colon; K95.09 Other complications of gastric band procedure; K57.90 Diverticulosis of intestine, part unspecified, without perforation or abscess without bleeding; Z68.43 Body mass index [BMI] 50.0-59.9, adult; Z88.5 Allergy status to narcotic agent; Z91.048 Other nonmedicinal substance allergy status; Z88.8 Allergy status to other drugs, medicaments and biological substances
CPT/HCPCS: 80053; 80061; 80323; 82306; 82525; 82607; 82728; 82746; 83036; 83540; 83550; 83735; 83970; 84100; 84134; 84255; 84425; 84443; 84590; 84630; 85027; 85610; 85730; 93005; 99211

== ENCOUNTER → 2020-12-17 | Outpatient (CLI) | payer BC ==
--- NOTE | 2020-12-17 21:49 | CT ---
EXAMINATION TYPE: CT abdomen pelvis w con DATE OF EXAM: 12/17/2020 HISTORY: abdominal pain. hx of renal ca, diverticulitis. CT DLP: 3429.3mGycm Automated Exposure Control for Dose Reduction was Utilized. CONTRAST: CT scan of the abdomen and pelvis is performed with oral and with IV Contrast, patient injected with 100 mL of Isovue 300. COMPARISON: CT abdomen and pelvis August 27, 2016 FINDINGS: LUNG BASES: No significant abnormality is appreciated. LIVER/GB: Tiny dependent gallstones in the gallbladder. PANCREAS: No significant abnormality is seen. SPLEEN: No significant abnormality is seen. ADRENALS: No significant abnormality is seen. KIDNEYS: Unusual contour and position to both kidneys redemonstrated. There is however symmetric monico ical medullary uptake and excretion without hydronephrosis. BOWEL: Lap band device position is stable and satisfactory. Oral contrast reaches level of mid transv erse colon. No suspicious small or large bowel dilatation. Appendix is not dilated from base of cecum . Some diverticula in the left and sigmoid colon. No surrounding inflammatory change to suggest acute diverticulitis. UTERUS/ADNEXA: Anteverted uterus. Slightly more prominent oval hypodense lesions in the bilateral adn exa measuring 5.1 x 4.4 cm on the right axilla which 71 and 7.3 x 4.6 cm on the left single image. LYMPH NODES: No greater than 1cm abdominal or pelvic lymph nodes are appreciated. OSSEOUS STRUCTURES: Metallic artifact from left hip arthroplasty redemonstrated causes streak artifac t limiting evaluation of pelvic structures. Facet arthropathy lower lumbar levels. Moderate to severe disc space narrowing and vacuum disc phenomenon L3-L4 through L5-S1 levels OTHER: No significant additional abnormality is seen. IMPRESSION:. Distal colonic diverticulosis without CT evidence for acute diverticulitis. More promine nt bilateral ovarian thin-walled cysts or cystic lesions larger on the left measuring up to 7.3 cm lo ng axis. Consider pelvic ultrasound to further evaluate and characterize.
== END | disposition home or self-care (01) ==
LOC: RADCTMAIN 13:58
PROVIDERS: ATTEND Surgery Plastic and Reconstructive Surgery
DX: K57.30 Diverticulosis of large intestine without perforation or abscess without bleeding (principal); Z85.528 Personal history of other malignant neoplasm of kidney
CPT/HCPCS: 82565; 84520; 74177; 36415; Q9967

== ENCOUNTER → 2020-12-24 | Outpatient (CLI) | payer BC ==
--- NOTE | 2020-12-24 08:47 | US ---
EXAMINATION TYPE: US gallbladder DATE OF EXAM: 12/24/2020 COMPARISON: 07/22/2010, CT 12/17/2020 CLINICAL HISTORY: R10.11 RUQ pain; R10.12 LUQ pain. Pain exam limitations due to body habitus. EXAM MEASUREMENTS: Liver Length: 16.3 cm Gallbladder Wall: .3 cm CBD: .5 cm Right Kidney: 10.6 x 4.2 x 4.4 cm Pancreas: Obscured by bowel gas Liver: Increased attenuation limited Gallbladder: limited no stones visualized Evidence for sonographic Coelho's sign: no CBD: wnl Right Kidney: wnl IMPRESSION: The liver is heterogeneous in echotexture with increased echogenicity and poor penetration which is n onspecific but commonly seen in hepatic steatosis. Limited examination due to poor acoustic windows.
--- NOTE | 2020-12-24 11:58 | FL ---
EXAMINATION TYPE: FL barium swallow w video DATE OF EXAM: 12/24/2020 CLINICAL HISTORY: 61-year-old female R13.10, dysphagia. Complaining of esophageal and throat cramping and pain. TECHNIQUE: Deglutition study is performed utilizing thin liquid barium, honey and nectar thick liqui d barium, barium thick applesauce, and barium coated cracker. Total fluoroscopy time: 58 seconds. Total images: None. Real-time fluoroscopy support was provided to speech pathology. COMPARISON: None. FINDINGS: The oral and pharyngeal phases show satisfactory initiation and propagation with all modalities teste d. Normal mastication is seen with solid modalities tested. There is no evidence of penetration or aspiration with any modality tested. No significant pharyngeal residue was appreciated. IMPRESSION: Normal dynamic swallow study. Please refer to speech therapist notes for further details if necessar y.
== END | disposition home or self-care (01) ==
LOC: RADUSWWP 07:42
PROVIDERS: ATTEND Surgery Plastic and Reconstructive Surgery
DX: R13.10 Dysphagia, unspecified (principal); K76.0 Fatty (change of) liver, not elsewhere classified
CPT/HCPCS: 74230; 76705

== ENCOUNTER 2020-12-31 06:49 | Day surgery (SDC) | payer BC ==
[2020-12-26 13:08] VITALS: BMI 48.4
[~2020-12-31 06:49] MED LIST: LACTATED RINGERS 1,000 ML IV SCH
[2020-12-31 07:24] VITALS: RESP 16; TEMP 96.7
[2020-12-31] MEDS ORDERED: LACTATED RINGERS 1,000 ML IV ONE (07:24)
[2020-12-31] MEDS ORDERED: LIDOCAINE 1% (10MG/ML) FOR IV START INTRADERMA ONE (07:25)
--- NOTE | 2020-12-31 07:41 | P.GSHP ---
History of Present Illness H&P Date: 12/31/20 CHIEF COMPLAINT: GERD and colon screen HISTORY OF PRESENT ILLNESS: The patient is a 60-year-old female who presents with gastroesophageal reflux disease and need for colon screen. Upper and lower endoscopy were offered for further evaluation and management. PAST MEDICAL HISTORY: Please see list. PAST SURGICAL HISTORY: Please see list. MEDICATIONS: Please see list. ALLERGIES: Please see list. SOCIAL HISTORY: No illicit drug use FAMILY HISTORY: No reports of Crohn disease or ulcerative colitis. REVIEW OF ORGAN SYSTEMS: CONSTITUTIONAL: No reports of fevers or chills. GI: Denies any blood in stools or constipation. PHYSICAL EXAM: VITAL SIGNS: Stable GENERAL: Well-developed pleasant in no acute distress. HEENT: No scleral icterus. Extraocular movements grossly intact. Moist buccal mucosa. NECK: Supple without lymphadenopathy. CHEST: Unlabored respirations. Equal bilateral excursions. CARDIOVASCULAR: Regular rate and rhythm. Distal 2+ pulses. ABDOMEN: Soft, nondistended. MUSCULOSKELETAL: No clubbing, cyanosis, or edema. ASSESSMENT: 1. Gastroesophageal reflux disease 2. Colon screen. PLAN: 1. Recommend proceeding with an upper and lower endoscopy Past Medical History Past Medical History: Cancer, Diabetes Mellitus, Osteoarthritis (OA) Additional Past Medical History / Comment(s): Hard of hearing, degenerative disc disease and stenosis, left kidney cancer. WAS TOLD BY SHE IS A DIABETIC-NO TREATMENT AT THIS TIME" PATIENT STATES SHE HAS A SORE ON HER BUTTOCKS" History of Any Multi-Drug Resistant Organisms: None Reported Past Surgical History: Bariatric Surgery, Section, Orthopedic Surgery Additional Past Surgical History / Comment(s): lap band 2003 (port moved from left to right later on), left knee total, right hip total replacement, left partial nephrectomy (cancer), D&C, ovarian cyst removal, right rotator cuff x2, (adhesion removal following the ) , Right carpal tunnel, left breast lumpectomy (benign) Past Anesthesia/Blood Transfusion Reactions: Postoperative Nausea & Vomiting (PONV) Additional Past Anesthesia/Blood Transfusion Reaction / Comment(s): if not given an antiemetic will get Vertigo after anesthesia Smoking Status: Former smoker - Past Family History Mother Family Medical History: Congestive Heart Failure (CHF), Hypertension Father Family Medical History: Diabetes Mellitus Additional Family Medical History / Comment(s): at age 84, Medications and Allergies Home Medications Medication Instructions Recorded Confirmed Type Meloxicam [Mobic] 15 mg PO DAILY 05/11/14 12/31/20 History clonazePAM [KlonoPIN] 1 mg PO HS 05/11/14 12/31/20 History Ergocalciferol [Vitamin D2 (1250 50,000 unit PO TH 12/06/20 12/31/20 History Mcg = 53196 Iu)] Allergies Allergy/AdvReac Type Severity Reaction Status Date / Time codeine Allergy Severe AGITATED-"CLIMBS Verified 12/26/20 12:50 THE WALL" VERY ITCHY adhesive Allergy TAKES SKIN Verified 12/26/20 12:50 OFF-PAPER TAPE OK FOR A SHORT TIME morphine Allergy Itching Verified 12/26/20 12:50 CONTACT COLD MEDICATION Allergy HIVES Uncoded 12/26/20 12:50 Surgical - Exam Vital Signs Temp Pulse Resp BP Pulse Ox 96.7 F L 108 H 16 177/88 96 12/31/20 07:23 12/31/20 07:23 12/31/20 07:23 12/31/20 07:23 12/31/20 07:23
[2020-12-31] MEDS ORDERED: GLYCOPYRROLATE 0.2 MG/ML 2 ML VIAL ONE (07:42)
[2020-12-31] MEDS ORDERED: PROPOFOL 10 MG/ML 20 ML VIAL IV ONE (07:42)
[2020-12-31] MEDS ORDERED: KETAMINE 10 MG/ML 20 ML VIAL ONE (07:42)
[2020-12-31] MEDS ORDERED: LIDOCAINE 1% INJ 10MG/ML (20 ML MDV) ONE (07:42)
--- NOTE | 2020-12-31 07:56 | P.PCN ---
Date of Procedure: 12/31/20 Description of Procedure: PREOPERATIVE DIAGNOSIS: Gastroesophageal reflux disease. Morbid obesity. History of adjustable gastric band POSTOPERATIVE DIAGNOSIS: Morbid obesity. Gastritis. Gastroesophageal reflux disease. OPERATION: Esophagogastroduodenoscopy with biopsies along antrum. SURGEON: Deana Enriquez MD ANESTHESIA: MAC. INDICATIONS: The patient is a 60-year-old female who presents with a history of reflux disease. Benefits and risks of the procedure were described. Informed consent was obtained. DESCRIPTION: The patient was brought into the endoscopy suite and laid in the left lateral decubitus position. An Olympus gastroscope was passed along the posterior oropharynx down to the distal esophagus where the squamocolumnar junction was encountered at 41 cm from the incisors. The stomach was entered and no bile reflux was found. Additional findings are listed below. Biopsies with cold forceps were obtained of the antrum. The first through third portion of the duodenum was examined and unremarkable. Retroflexion of the scope confirmed Hill grade 2 lower esophageal valve. The squamocolumnar junction demonstrated LA grade B erosive esophagitis. The stomach was desufflated. The patient tolerated the procedure well. FINDINGS: Squamocolumnar junction 41 cm from the incisors. Diaphragmatic hiatus at 41 cm. Hill grade 2 lower esophageal valve. LA grade B erosive esophagitis. No active duodenitis. Adjustable gastric band without erosion Chronic gastritis with recent bleed RECOMMENDATIONS: Upper endoscopy as needed.
--- NOTE | 2020-12-31 08:21 | P.PCN ---
Date of Procedure: 12/31/20 Description of Procedure: PREOPERATIVE DIAGNOSIS: Colonoscopy screening POSTOPERATIVE DIAGNOSIS: Tubular adenoma descending colon Tubular adenoma mid transverse colon Tubular adenoma sigmoid colon Internal hemorrhoids, grade 2 OPERATION: Colonoscopy to the ileocecal valve and appendiceal orifice, cecum Colonoscopy with hot snare polypectomy SURGEON: Deana Enriquez MD. ANESTHESIA: MAC. INDICATIONS: The patient is an 60-year-old female who presents for colonoscopy. Last colonoscopy over 5 years. Benefits and risks were described and informed consent was obtained. DESCRIPTION OF PROCEDURE: The patient had undergone Sutab prep. The patient had been brought into the operating room and laid in the left lateral decubitus position. After adequate intravenous sedation, the rectum was examined with 2% lidocaine jelly. External hemorrhoids were encountered. The rectal tone was within normal limits. No lesions were palpated in the rectal vault. An Olympus colonoscope was advanced until the cecum, ileocecal valve and appendiceal orifice were clearly viewed. The prep was excellent. No sigmoid diverticulosis was encountered. Colonic polyps were found and removed. No evidence of focal colitis was found. Retroflexion of the scope demonstrated grade 2 internal hemorrhoids without ac tive bleeding or inflammation. The colon was desufflated. The patient had tolerated the procedure well. Withdrawal time was over 6 minutes. FINDINGS: Aronchick preparation quality scale 1 (1-5) Internal hemorrhoids, grade 2. External hemorrhoids, grade 2. No arteriovenous malformations. No sigmoid diverticulosis Removal of 3 polyps: - Snare polypectomy 25 cm from the anal verge, 8 mm flat tubulovillous adenoma polyp. - Snare polypectomy 30 cm from the anal verge, 5 mm villous adenoma polyp. - Snare polypectomy mid transverse colon, 6 mm villous adenoma polyp. No focal colitis. RECOMMENDATIONS: Repeat colonoscopy 3 years, 2023 Plan - Discharge Summary Discharge Rx Participant: No New Discharge Prescriptions: New Omeprazole [PriLOSEC] 40 mg PO DAILY #14 cap Continue clonazePAM [KlonoPIN] 1 mg PO HS Meloxicam [Mobic] 15 mg PO DAILY Ergocalciferol [Vitamin D2 (1250 Mcg = 57885 Iu)] 50,000 unit PO TH Discharge Medication List Meloxicam [Mobic] 15 mg PO DAILY 05/11/14 [History] clonazePAM [KlonoPIN] 1 mg PO HS 05/11/14 [History] Ergocalciferol [Vitamin D2 (1250 Mcg = 94172 Iu)] 50,000 unit PO TH 12/06/20 [History] Omeprazole [PriLOSEC] 40 mg PO DAILY #14 cap 12/31/20 [Rx] Follow up Appointment(s)/Referral(s): Deana Enriquez MD [STAFF PHYSICIAN] - 01/16/21 Patient Instructions/Handouts: Colorectal Polyps (DC), Gastroesophageal Reflux Disease (ED), Diet for Stomach Ulcers and Gastritis (ED) Activity/Diet/Wound Care/Special Instructions: May resume all medications Discharge Disposition: HOME SELF-CARE
[2020-12-31 08:56] VITALS: BP 144/76; PULSE 87
== END 2020-12-31 09:00 | disposition home or self-care (01) ==
LOC: ORWHC2ENDO 06:49
PROVIDERS: ATTEND Surgery Plastic and Reconstructive Surgery
DX: Z12.11 Encounter for screening for malignant neoplasm of colon (principal); K31.9 Disease of stomach and duodenum, unspecified; K63.5 Polyp of colon; K29.70 Gastritis, unspecified, without bleeding; K64.1 Second degree hemorrhoids; K22.10 Ulcer of esophagus without bleeding; E66.01 Morbid (severe) obesity due to excess calories; Z68.42 Body mass index [BMI] 45.0-49.9, adult; Z98.84 Bariatric surgery status; G47.33 Obstructive sleep apnea (adult) (pediatric); E11.9 Type 2 diabetes mellitus without complications; M19.90 Unspecified osteoarthritis, unspecified site; H91.90 Unspecified hearing loss, unspecified ear; Z85.528 Personal history of other malignant neoplasm of kidney; Z98.891 History of uterine scar from previous surgery; Z96.652 Presence of left artificial knee joint; Z96.641 Presence of right artificial hip joint; Z90.5 Acquired absence of kidney; Z98.890 Other specified postprocedural states; Z87.891 Personal history of nicotine dependence; Z82.49 Family history of ischemic heart disease and other diseases of the circulatory system; Z83.3 Family history of diabetes mellitus; Z79.1 Long term (current) use of non-steroidal anti-inflammatories (NSAID); Z79.899 Other long term (current) drug therapy; Z88.5 Allergy status to narcotic agent; Z88.8 Allergy status to other drugs, medicaments and biological substances; Z91.09 Other allergy status, other than to drugs and biological substances
CPT/HCPCS: 88305; 45385; 43239; J2001; J2704

== ENCOUNTER → 2021-10-16 | Outpatient (CLI) | payer BC ==
--- NOTE | 2021-10-16 13:18 | MM ---
Reason for exam: clinical finding. Last mammogram was performed 1 year and 4 months ago. History: Patient is postmenopausal and has history of other cancer at age 54. Benign excisional biopsy of the left breast, 1996. Indicated problem(s): palpable abnormality in the left breast. Physical Findings: A clinical breast exam by your physician is recommended on an annual basis and results should be correlated with mammographic findings. [facility] Diagnostic Mammo w CAD JUAN Bilateral CC and MLO view(s) were taken. Technologist: RT Carlee (R)(M) Prior study comparison: July 02, 2020, bilateral MG screening mammo w CAD. May 02, 2016, bilateral MG screening mammo w CAD. There are scattered fibroglandular densities. There are benign appearing coarse calcifications in the left breast. There is no discrete abnormality including area of concern left axillary region. Left axillary lymph nodes noted. No significant new findings when compared with previous films. Results were given to the patient verbally at the time of the exam. ASSESSMENT: Benign, BI-RAD 2 RECOMMENDATION: Routine screening mammogram of both breasts in 1 year. Manage patient on a clinical basis.
--- NOTE | 2021-10-16 13:19 | USB ---
Reason for exam: clinical finding. History: Patient is postmenopausal and has history of other cancer at age 54. Benign excisional biopsy of the left breast, 1996. Indicated problem(s): palpable abnormality in the left breast. Physical Findings: A clinical breast exam by your physician is recommended on an annual basis and results should be correlated with mammographic findings. US Breast Limited LT Technologist: Rosie Fallon Left limited breast ultrasound including focal area of concern, retroareolar and axilla demonstrates a 3.7 x 0.8 x 1.0cm lymph node at the axilla, no cortical thickening. Results were given to the patient verbally at the time of the exam. ASSESSMENT: Benign, BI-RAD 2 RECOMMENDATION: Routine screening mammogram of both breasts in 1 year. Manage patient on a clinical basis.
== END | disposition home or self-care (01) ==
LOC: RADMAMWWP 11:02
PROVIDERS: ATTEND Obstetrics & Gynecology
DX: R92.8 Other abnormal and inconclusive findings on diagnostic imaging of breast (principal); Z78.0 Asymptomatic menopausal state
CPT/HCPCS: 77066